=== PATIENT | male | born 1985 | race Caucasian/White ===

== ENCOUNTER 2025-09-23 19:54 | Emergency (ER) | payer SELFPAY ==
[~2025-09-23] VITALS: Ht 175.3 cm; Wt 82.0 kg
[2025-09-23 19:55] VITALS: O2SAT 100
[2025-09-23] MEDS: IBUPROFEN 800MG TABLET PO ONE (20:42)
[2025-09-23 22:13] VITALS: BP 143/95; PULSE 90; RESP 13; TEMP 37.2; O2SAT 100
== END 2025-09-23 22:23 | disposition home or self-care (01) ==
LOC: ER 19:54
DX: F10.129 Alcohol abuse with intoxication, unspecified (principal); R51.9 Headache, unspecified; Z90.49 Acquired absence of other specified parts of digestive tract; Y90.9 Presence of alcohol in blood, level not specified
CPT/HCPCS: 99284